=== PATIENT | female | born 1995 | race Caucasian/White ===

== ENCOUNTER 2017-02-14 09:47 | Emergency (ER) | payer BC, MEDICAID ==
[~2017-02-14] VITALS: Ht 182.9 cm; Wt 55.0 kg
[~2017-02-14 09:47] MED LIST: AZIT250T94 PO; BACTDS PO; CEPH-443 PO; IBUP-1542 PO; IBUP400T22 PO; MUPI22OI2 TOP; PHEN177S43 MT
[2017-02-14 09:50] VITALS: Ht 182.9 cm; Wt 55.0 kg
[2017-02-14] MEDS ORDERED: CLOT30CR24 TOP (10:34)
[2017-02-14] MEDS ORDERED: KENC1 TOP (10:34)
--- NOTE | 2017-02-14 10:36 | ERD ---
ER Documentation Chief Complaint Date/Time DATE: 02/14/17 TIME: 10:34 Chief Complaint rash on lt side of abd x 2 weeks HPI This 29-year-old female complains of an itchy rash on her left flank area for last 2 weeks. Mother states she she may have had the rash since but it intermittently flares up. She denies any new soaps or creams or known potential allergens. She denies fevers, vomiting, shortness of breath or chest pain. The rash is not painful ROS All systems reviewed and are negative except as per history of present illness. Medications Home Meds Active Scripts Clotrimazole* (Clotrimazole* AF) 1% - 30 Gm Cream.gm., 1 APPLIC TOP BID for 10 Days, TUB Prov:BRONWYN MILES MD 02/14/17 Triamcinolone Acetonide (Triamcinolone Acetonide) 0.1% - 15 Gm Cream.gm., 1 APPLIC TOP BID for 7 Days, #1 TUB 30G Prov:BRONWYN MILES MD 02/14/17 Azithromycin* (Zithromax*) 250 Mg Tablet, 250 MG PO .ZPACK DIRECTED, #6 TAB TAKE 500 MG (2 TABS) THE FIRST DAY THEN 250 MG (1 TAB) DAYS 2-5 Prov:LARRY SANABRIA PA-C 07/17/16 Ibuprofen* (Ibuprofen*) 400 Mg Tablet, 400 MG PO Q6H Y for PAIN, #30 TAB Prov:LARRY SANABRIA PA-C 07/17/16 Phenol* (Chloraseptic* Newberg) 177 Ml Newberg.pump, 2 SPRAY MT Q2H Y for SORE THROAT, #1 BOTTLE Prov:LARRY SANABRIA PA-C 07/17/16 Ibuprofen* (Motrin*) 400 Mg Tab, 400 MG PO Q8, #20 Prov:HAROONECELINE ALLEN 07/31/15 Sulfamethoxazole-Trimethoprim* (Bactrim* DS) 800-160 Mg Tab, 1 TAB PO BID for 5 Days, TAB Prov:HAROONECELINE ALLEN 07/31/15 Cephalexin* (Keflex*) 500 Mg Capsule, 500 MG PO QID for 7 Days, CAP Prov:HAROONECELINE ALLEN 07/31/15 Mupirocin* (Bactroban*) 2% -22 Gram Oint...g., 1 APPLIC TOP BID for 7 Days, EA Prov:DARWIN LONG. [employer] 07/13/15 Ibuprofen* (Motrin*) 600 Mg Tab, 600 MG PO Q6H Y for PAIN AND OR ELEVATED TEMP, #30 Prov:DARWIN LONG. [employer]SEM[employer] 07/13/15 Allergies Allergies: Coded Allergies: No Known Allergy (Unverified , 07/13/15) PMhx/Soc History of Surgery: No Hx Neurological Disorder: No Hx Respiratory Disorders: Yes (inactive tb) Hx Cardiac Disorders: No Hx Psychiatric Problems: No Hx Miscellaneous Medical Probl: No Hx Alcohol Use: No Hx Substance Use: No Hx Tobacco Use: No Physical Exam Vitals Vital Signs Date Time Temp Pulse Resp B/P Pulse Ox O2 Delivery O2 Flow Rate FiO2 02/14/17 09:50 98.2 84 18 122/84 99 Physical Exam Const: [] Alert, [id number] per Head: Atraumatic Eyes: Normal Conjunctiva ENT: Normal External Ears, Nose and Mouth. Neck: Full range of motion..~ No meningismus. Resp: Clear to auscultation bilaterally Cardio: Regular rate and rhythm, no murmurs Abd: Soft, non tender, non distended. Normal bowel sounds Skin: No petechiae or purpura. On the left flank area in a similar distribution to her sports bra there are small slightly inflamed plaques or macules with very mild ring-shaped appearance. There is no warmth, erythema, discharge. They are nontender. Back: No midline or flank tenderness Ext: No cyanosis, or edema Neur: Awake and alert Psych: Normal Mood and Affect Procedures/MDM Patient presents with a non-specific dermatitis of the left flank. A few of the lesions have a clinical appearance of some type of tinea. If the rash is truly been there for her whole life this likely not tinea. May be nonspecific eczema-like reaction or contact dermatitis given the distribution along the sports bra.. It is not consistent with shingles, cellulitis, life-threatening rashes or purpura. She will treated with triamcinolone empirically with Motrin and instructed to follow-up with primary doctor and consider dermatology Departure Diagnosis: Primary Impression: Rash Condition: Stable Patient Instructions: Dermatitis, Non-Specific Additional Instructions: Rash appears to be due to sensitive skin or eczema but will treat for fungus. Recheck with primary doctor consider dermatology for persistent symptoms. BRONWYN MILES MD February 14, 2017 10:36
== END 2017-02-14 11:55 | disposition home or self-care (01) ==
LOC: FTE 09:47
DX: R21 Rash and other nonspecific skin eruption (principal)
CPT/HCPCS: 99283

== ENCOUNTER 2017-11-25 08:49 | Emergency (ER) | END 2017-11-25 13:01 | disposition home or self-care (01) ==